=== PATIENT | female | born 1990 | race Caucasian/White ===

== ENCOUNTER 2024-11-07 09:36 | Emergency (ER) | payer OTHER, SELFPAY ==
[2024-11-07 09:44] VITALS: BP 127/76; PULSE 90; RESP 16; TEMP 36.2; O2SAT 99
--- OUTSIDE RECORDS SUMMARY | 2024-11-07 09:46 | XMS_ITS | Clinical Summary ---
Author [place] [facility] [place] [address] [place] [address] Address [address] [place] [address] Care Team Providers Care Lands Resource Manager Name Role Phone Arnulfo Hines MD Primary Care Provider + Allergies Active Allergy Reactions Criticality Noted Date Comments Milk Medications medroxyPROGEST ERone (DEPO-PROVERA) 150 mg/mL injection inject 1 milliliter by intramuscular route every 3 months 0 vial 0 7 Active dicyclomine (BENTYL) 10 mg capsule take 1 capsule by oral route 3 times every day 0 0 7 Active metoprolol XL (TOPROL XL) 25 mg 24 hr tablet take 1 tablet by oral route every day 0 2 Active cetirizine (ZyrTEC) 10 mg tablet take 1 tablet by oral route every day 0 0 5 Active cholecalcifero l (VITAMIN D3) 1,000 unit capsule 0 0 5 Active desogestrel-et hinyl estradiol (APRI) 0.15-0.03 mg per tablet take 1 tablet by oral route every day 0 2 Active cyclobenzaprin e (FLEXERIL) 10 mg tablet Take 10 mg by mouth 3 (three) times a day as needed. 3 8 Active carisoprodol (SOMA) 350 mg tabletIndicati ons:Muscle Spasm Take 1 tablet (350 mg total) by mouth 3 (three) times a day. 15 tablet 8 Active sertraline (ZOLOFT) 100 mg tablet TAKE 1 TABLET BY MOUTH EVERY DAY AT NIGHT 11 9 Active ergocalciferol (VITAMIN D) 50,000 unit capsule TAKE 1 CAPSULE BY MOUTH ONCE WEEKLY DIRECTED 3 9 Active amoxicillin-cl avulanate (AUGMENTIN) 875-125 mg per tablet Take 1 tablet by mouth every 12 (twelve) hours 14 tablet 4 Active ibuprofen (ADVIL,MOTRIN) 600 mg tabletIndicati ons:Pain Take 1 tablet (600 mg total) by mouth 3 (three) times a day Take with food. 30 tablet 4 Active naproxen (NAPROSYN) 500 mg tabletIndicati ons:Sacrum and coccyx fracture, closed, initial encounter (HCC) Take 1 tablet (500 mg total) by mouth 2 (two) times a day with meals P.r.n. pain and swelling. Collaborating physician Juan Luciano MD 20 tablet 4 Active traMADoL (ULTRAM) 50 mg tabletIndicati ons:Sacrum and coccyx fracture, closed, initial encounter (HCC) Take 1 tablet (50 mg total) by mouth every 8 (eight) hours as needed for pain P.r.n. pain not relieved by naproxen alone. Take 500 mg to 650 mg of acetaminophen with each dose. Take with food. Collaborating physician Juan Luciano MD 20 tablet 4 Active Active Problems Problem Noted Date Diagnosed Date Sacrum and coccyx fracture, closed, initial enco unter 02/28/2024 Cervical strain, acute, initial encounter 2023 Strain of thoracic back region 02/28/2024 Lumbar strain, initial encounter 02/28/2024 Fall on stairs 02/28/2024 Tachycardia 01/25/2012 Overview (07/23/2016): Fast heart beat Medical History Medical History Date Comments Hx Other Medical Appendectomy Hx Other Medical small bowell Family History Medical History Relation Name Comments Diabetes Other 1 Family history of Diabetes mellitus; Stroke Other 2 Family history of Stroke; Heart disease Other 3 Family history of Heart disease; Colon cancer Other 4 Family history of Cancer, colon; Breast cancer Other 5 Family history of Cancer, breast; Migraines Other 6 Family history of Migraines; Relation Name Status Comments Other 1 Other 2 Other 3 Other 4 Other 5 Other 6 Social History Tobacco Use Types Packs/Day Years Used Date Smoking Tobacco: Never Smokeless Tobacco: Never Tobacco Cessation:Counseling Given: Not Answered Alcohol Use Standard Drinks/Week Comments Not Currently 0 (1 standard drink = 0.6 oz pur e alcohol) Personal Safety Answer Date Recorded Have you ever been in or are you currently in a harmful physical or emotional relationship or is someone making you feel afraid or unsafe? Denies 05/16/2024 Comments No Sex and Gender Information Value Date Recorded Sex Assigned at Not on file Legal Sex Female 1:07 AM LAMINATOR Gender Identity Not on file Sexual Orientation Not on file Obstetrics History Last Filed Vital Signs Vital Sign Reading Time Taken Comments Blood Pressure 136/96 05/16/2024 8:48 PM LAMINATOR Pulse 91 05/16/2024 8:48 PM LAMINATOR Temperature 36.7 C (98.1 F) 05/16/2024 8:48 PM LAMINATOR Respiratory Rate 20 05/16/2024 8:48 PM LAMINATOR Oxygen Saturation 99% 05/16/2024 8:48 PM LAMINATOR Inhaled Oxygen Concentration - - Weight 72.6 kg (160 lb) 05/16/2024 8:48 PM LAMINATOR Height 157.5 cm (5' 2) 05/16/2024 8:48 PM LAMINATOR Body Mass Index 29.26 05/16/2024 8:48 PM LAMINATOR Plan of Treatment Health Maintenance Due Date Last Done Comments Cervical Cancer Screening 1990 Depression Screening 1990 Hepatitis C Screening 1990 DTaP/Tdap/Td Vaccine (1 - Tdap) 2001 Varicella Vaccines (1 of 2 - 13+ 2-dose series) 2003 Hepatitis B Screening 2008 Regular Well Visit/Exam 18-64 2008 Influenza Vaccine (Season Ended) 2024 HPV Vaccines Aged Out No longer eligi ble based on patient's age to complete this topic Pneumococcal vaccine <65 Aged Out No longer eligible based on patient's age to complete this topic Insurance [facility] CHOICE PLUS Care Teams Lands Resource Manager Relationship Specialty [place] [address] [facility] [address] [place] [address] PCP - General 07/16/16
--- OUTSIDE RECORDS SUMMARY | 2024-11-07 09:46 | XMS_ITS | Clinical Summary ---
Author Organization [facility] Address [address] [place] [address] Phone Care Team Providers Care Hospital Manager Name Role Phone Arnulfo Mariscal MD Primary Care Provider [phone] Social History Tobacco Use Types Packs/Day Years Used Date Smoking Tobacco: Never Assessed Comments Unknown Sex and Gender Information Value Date Recorded Sex Assigned at Not on file Legal Sex Female 11:44 PM CDT Gender Identity Not on file Sexual Orientation Not on file Plan of Treatment Health Maintenance Due Date Last Done Comments Hepatitis C Virus (HCV) Screening 1990 TdaP Immunization 1990 Human Papillomavirus (HPV) Immunization (1 - 3-dose series) 2005 Hepatitis B Immunization (1 of 3 - 19+ 3-dose series) 2009 Pap Smear 2011 Cervical Cancer Screening (CCS) 2020 HPV/Cotest 2020 SARS-COV-2 Immunization ( season) 2023 Influenza Immunization (#1) 2024 Respiratory Syncytial Virus (RSV) Immunization (Adult) (1 - 1-dose 75+ series) 2065 Meningococcal Immunization (ACWY) Aged Out No longer eligible based on patient's age to complete this topic Pneumococcal Immunization Combined Aged Out No longer eligible based on patient's age to complete this topic Rotavirus Immunization Aged Out No lo nger eligible based on patient's age to complete this topic Care Teams Hospital Manager Relationship Specialty [place] [address] [facility] [place] [address] [facility] - General Internal Medicine 01/31/21
--- OUTSIDE RECORDS SUMMARY | 2024-11-07 09:46 | XMS_ITS | Referral Summary ---
Author Organization [facility] [place] [address] [place] [address] Address [address] [place] [address] Care Team Providers Care Surgical Physician Assistant Name Role Phone Arnulfo Hines MD Primary [...] ons:Sacrum and coccyx fracture, closed, initial encounter ([facility]) Take 1 tablet (500 mg total) by [...] Tachycardia 01/25/2012 Overview (07/23/2016): Fast heart beat Social History Tobacco Use Types Packs/Day Years [...] on file Legal Sex Female 1:07 AM COTTON CHOPPER Gender Identity Not on file Sexual Orientation Not on file Last Filed Vital Signs Vital Sign Reading Time Taken Comments Blood Pressure 136/96 05/16/2024 8:48 PM COTTON CHOPPER Pulse 91 05/16/2024 8:48 PM COTTON CHOPPER Temperature 36.7 C (98.1 F) 05/16/2024 8:48 PM COTTON CHOPPER Respiratory Rate 20 05/16/2024 8:48 PM COTTON CHOPPER Oxygen Saturation 99% 05/16/2024 8:48 PM COTTON CHOPPER Inhaled Oxygen Concentration - - Weight 72.6 kg (160 lb) 05/16/2024 8:48 PM COTTON CHOPPER Height 157.5 cm (5' 2) 05/16/2024 8:48 PM COTTON CHOPPER Body Mass Index 29.26 05/16/2024 8:48 PM COTTON CHOPPER Plan of Treatment Not on file Insurance [facility] CHOICE PLUS [facility] HMO/PPO Address: [place] [address] [facility] CHOICE PLUS [facility] HMO/PPO Address: [address] [address] [place] [address] [facility] Care Teams Surgical Physician Assistant Relationship Specialty [place] [address] [facility] [address] [place] [address] PCP - General 07/16/16
--- NOTE | 2024-11-07 10:02 | ED.WOUNDLAC ---
HPI - Wound/Laceration General Chief Complaint: Wound/Laceration Stated Complaint: Oj Removed Time Seen by Provider: 11/07/24 10:02 Source: patient Mode of arrival: ambulatory Limitations: no limitations History of Present Illness HPI narrative: 34-year-old female presented for staple removal from scalp. Endorses 3 oj were placed at an outside facility 10 days ago. Denies any complications. Review of Systems Review of Systems: CONSTITUTIONAL: Denies body aches, fever, chills, or sweats. EYES: Denies visual changes, redness, or discharge. ENT: Denies rhinorrhea, congestion CARDIOVASCULAR: Denies chest pain, palpitations, or edema. RESPIRATORY: Denies cough or dyspnea. GASTROINTESTINAL: Denies abdominal pain, nausea, vomiting, or diarrhea. SKIN: reports oj in scalp MUSCULOSKELETAL: Denies back pain, joint pain, or myalgia. NEUROLOGIC: Denies headache, numbness, tingling, or weakness. PMFSH Comments At time of signature, I have reviewed and agree with nursing past medical, surgical, social and family history unless otherwise noted. Please see nursing chart for further information. There is no relevant family history pertinent to the presenting complaint Exam Narrative: GENERAL: Well-appearing HEAD: Normocephalic, atraumatic. EYES: conjunctivae clear, and EOMI. ENT: Mucous membranes moist. Oropharynx without edema, erythema or lesions. NECK: Supple. No lymphadenopathy CHEST: Clear to auscultation. HEART: Regular rate and rhythm. SKIN: Warm, dry. Left parietal scalp with [address] NEURO: Alert and oriented x3. Course Course Emergency Course: Patient is aware of diagnosis, understands and agrees to treatment plan. Anticipatory guidance given. Patient agrees to follow-up as directed and is aware of reasons to seek care at the emergency department. Portions of this record may have been created with voice recognition software Level of Care: Express Care Visit Vital Signs Vital signs: Vital Signs Temperature 97.2 F L 11/07/24 09:44 Pulse Rate 90 11/07/24 09:44 Respiratory Rate 16 11/07/24 09:44 Blood Pressure 127/76 11/07/24 09:44 Pulse Oximetry 99 11/07/24 09:44 Oxygen Delivery Room Air 11/07/24 09:44 Temperature 97.2 F L 11/07/24 09:44 Pulse Rate 90 11/07/24 09:44 Respiratory Rate 16 11/07/24 09:44 Blood Pressure 127/76 11/07/24 09:44 Pulse Oximetry 99 11/07/24 09:44 Oxygen Delivery Room Air 11/07/24 09:44 Reviewed Procedures Other Procedure Procedure 1: Other Procedure: Three oj removed from left parietal scalp without difficulty. Wound appears healing well. Patient tolerated well. MDM - Wound/Laceration MDM Narrative Medical decision making narrative: Patient tolerated 3 oj removed from the scalp. Advised supportive measures and signs/symptoms to go to the ER. Pt is appropriate for outpt treatment and f/u. Discharge Plan Discharge Clinical Impression: Encounter for removal of oj Patient Disposition: Home Condition: Stable Instructions: Antibiotic Form, Acute Wounds (ED) Additional Instructions: Keep the area clean and dry - cleanse gently with warm water and mild soap Keep it open to air Watch for worsening symptoms including pain, redness, swelling, streaking, pus/drainage, fever. Go to the ER with any of these symptoms or concerns. Follow up with primary care provider as needed. Patient Language: Malagasy Follow-up/Referrals: Peyton,Ezekiel Rice DO [Primary Care Provider] - Time of Disposition: 10:11
== END 2024-11-07 10:17 | disposition home or self-care (01) ==
PROVIDERS: Emergency Provider Nurse Practitioner Family; PCP Family Medicine
DX: S01.01XD Laceration without foreign body of scalp, subsequent encounter (principal); X58.XXXD Exposure to other specified factors, subsequent encounter
CPT/HCPCS: 99202; G0463